=== PATIENT | male | born 2000 | race Caucasian/White ===

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

== ENCOUNTER 2024-09-16 22:36 | Emergency (ER) | payer SELFPAY ==
[~2024-09-16] VITALS: Ht 180.3 cm; Wt 76.1 kg
[~2024-09-16 22:36] MED LIST changes: +MELOXICAM15 MG PO
[2024-09-16 22:50] LABS: RDW 14.3 (10.5-15.0)
[2024-09-16 22:52] LABS: EOSINOPHILS 1.5 % (0-6); HEMATOCRIT 37.6 % (35.0-50.0); HEMOGLOBIN 12.5 g/dL (12.0-18.0); LYMPHOCYTES 31.5 % (24-44); MCH 27.8 (27-36); MCHC 33.3 g/dl (30-36); MCV 83.5 fl (81-99); MONOCYTES 8.1 % (0-12); NEUTROPHILS 57.9 % (39-80); PLATELET COUNT 263 K/uL (140-440)
[2024-09-16 23:05] LABS: ALBUMIN 3.6 g/dL (3.4-5.0); ALBUMIN/GLOBULIN RATIO 0.97 (1.1-2.4); ANION GAP 14.2 (7-21); BILIRUBIN, TOTAL 0.3 ng/dL (0.2-1.0); BUN/CREATININE RATIO 10.08 (6.0-28.6); CALCIUM 8.9 mg/dL (8.5-10.1); CREATININE, SERUM 1.19 mg/dL (0.70-1.30); POTASSIUM 3.2 mmol/L (3.5-5.1); PROTEIN, TOTAL 7.3 g/dL (6.4-8.2)
[2024-09-16 23:43] LABS: AMPHETAMINES, URINE POSITIVE (NEGATIVE); BARBITURATES, URINE NEGATIVE (NEGATIVE); BENZODIAZEPINE, URINE NEGATIVE (NEGATIVE); BUPRENORPHINE, URINE NEGATIVE (NEGATIVE); CANNABINOID, URINE POSITIVE (NEGATIVE); COCAINE, URINE NEGATIVE (NEGATIVE); ECSTASY, URINE POSITIVE (NEGATIVE); FENTANYL, URINE POSITIVE (NEGATIVE); METHADONE, URINE NEGATIVE (NEGATIVE); OPIATES, URINE NEGATIVE (NEGATIVE); OXYCODONE, URINE NEGATIVE (NEGATIVE); PHENCYCLIDINE, URINE NEGATIVE (NEGATIVE)
[2024-09-16] MEDS ORDERED: NALOXONE 4 MG NASAL SPRAY #2 HOME.PACK NAS ONE (23:45)
[2024-09-17 00:06] VITALS: BP 116/83
== END 2024-09-17 00:13 | disposition home or self-care (01) ==
LOC: ED 22:36
PROVIDERS: Family Medicine
DX: T50.901A Poisoning by unspecified drugs, medicaments and biological substances, accidental (unintentional), initial encounter (principal); R41.82 Altered mental status, unspecified; J45.909 Unspecified asthma, uncomplicated; F17.200 Nicotine dependence, unspecified, uncomplicated
CPT/HCPCS: 36415; 80053; 80307; 83735; 85025; 99284; J3490

== ENCOUNTER 2025-05-14 12:23 | Emergency (ER) | payer OTHER ==
[~2025-05-14] VITALS: Ht 180.3 cm; Wt 71.8 kg
[2025-05-14 13:23] VITALS: BP 125/93
== END 2025-05-14 13:25 | disposition home or self-care (01) ==
LOC: ED 12:23
DX: R07.81 Pleurodynia (principal); J45.909 Unspecified asthma, uncomplicated; F17.200 Nicotine dependence, unspecified, uncomplicated
CPT/HCPCS: 71101; 99283